=== PATIENT | male | born 1975 | race Caucasian/White ===

== ENCOUNTER → 2019-09-06 10:37 | Outpatient (BNVA) | payer SELFPAY | PROVIDERS: Family Provider Nurse Practitioner Family; PCP Nurse Practitioner Family; Visit Provider Nurse Practitioner Family | DX: R06.02 Shortness of breath (principal) | CPT/HCPCS: 71046 ==

== ENCOUNTER → 2022-01-10 10:03 | Outpatient (BNVA) | payer OTHER, SELFPAY | PROVIDERS: Family Provider Nurse Practitioner Family; PCP Nurse Practitioner Family; Visit Provider Nurse Practitioner Family | DX: I10 Essential (primary) hypertension (principal); E78.5 Hyperlipidemia, unspecified | CPT/HCPCS: 80053; 80061; 83721 ==

== ENCOUNTER → 2022-04-10 14:52 | Outpatient (BNVA) | payer OTHER, SELFPAY | PROVIDERS: Family Provider Nurse Practitioner Family; PCP Nurse Practitioner Family; Visit Provider Nurse Practitioner Family | DX: I10 Essential (primary) hypertension (principal); J32.9 Chronic sinusitis, unspecified | CPT/HCPCS: 80053; 80061; 83721 ==

== ENCOUNTER 2022-04-11 14:54 | Outpatient (CLI) | payer OTHER, SELFPAY ==
--- NOTE | 2022-04-11 15:54 | XRR_ITS ---
PROCEDURE INFORMATION: Exam: XR Sinus Exam date and time: 04/11/2022 3:57 PM Age: 46 years old Clinical indication: Condition or disease; Other: Chronic sinusitis; Additional info: J32.9 - chronic sinusitis, unspecified TECHNIQUE: Imaging protocol: XR of the sinuses and paranasal structures. Views: Minimum of 3 views. COMPARISON: No relevant prior studies available. FINDINGS: Sinuses: Well aerated. No opacification. Bones/joints: No fracture. Soft tissues: Unremarkable. XR/XR sinus min 3V* [id number] IMPRESSION: Unremarkable.
== END 2022-04-11 14:55 | disposition home or self-care (01) ==
LOC: RAD 15:02
PROVIDERS: PCP Nurse Practitioner Family; Visit Provider Nurse Practitioner Family
DX: J32.9 Chronic sinusitis, unspecified (principal)
CPT/HCPCS: 70220

== ENCOUNTER → 2022-08-12 08:12 | Outpatient (BNVA) | payer OTHER, SELFPAY | PROVIDERS: PCP Nurse Practitioner Family; Visit Provider Nurse Practitioner Family | DX: E78.5 Hyperlipidemia, unspecified (principal); I10 Essential (primary) hypertension | CPT/HCPCS: 80053; 80061 ==

== ENCOUNTER → 2022-11-11 14:13 | Outpatient (BNVA) | payer OTHER, SELFPAY | PROVIDERS: PCP Nurse Practitioner Family; Visit Provider Nurse Practitioner Family | DX: I10 Essential (primary) hypertension (principal); E78.5 Hyperlipidemia, unspecified | CPT/HCPCS: 80053; 80061; 83721 ==

== ENCOUNTER → 2023-02-19 11:02 | Outpatient (BNVA) | payer OTHER, SELFPAY | PROVIDERS: PCP Nurse Practitioner Family; Visit Provider Nurse Practitioner Family | DX: I10 Essential (primary) hypertension (principal); E78.5 Hyperlipidemia, unspecified | CPT/HCPCS: 80053; 80061 ==

== ENCOUNTER 2023-04-28 16:15 | Outpatient (CLI) | payer OTHER, SELFPAY ==
--- NOTE | 2023-04-28 16:42 | XRR_ITS ---
PROCEDURE INFORMATION: Exam: XR Chest Exam date and time: 04/28/2023 4:44 PM Age: 47 years old Clinical indication: Cough; Additional info: R05.9 - cough, unspecified TECHNIQUE: Imaging protocol: Radiologic exam of the chest. Views: 2 views. COMPARISON: CR XR chest 2V* [id number] 09/06/2019 10:47 AM FINDINGS: Lungs: Mild perihilar peribronchial thickening. No consolidation. Pleural spaces: Unremarkable. No pleural effusion. No pneumothorax. Heart/Mediastinum: Unremarkable. No cardiomegaly. Bones/joints: Unremarkable. XR/XR chest 2V* [id number] IMPRESSION: Mild perihilar peribronchial thickening suggestive of bronchitis. No confluent consolidation.
== END 2023-04-28 16:16 | disposition home or self-care (01) ==
PROVIDERS: PCP Nurse Practitioner Family; Visit Provider Nurse Practitioner Family
DX: R05.9 Cough, unspecified (principal); R91.8 Other nonspecific abnormal finding of lung field
CPT/HCPCS: 71046

== ENCOUNTER → 2023-07-23 09:15 | Outpatient (BNVA) | payer OTHER, SELFPAY | PROVIDERS: PCP Nurse Practitioner Family; Visit Provider Nurse Practitioner Family | DX: R10.811 Right upper quadrant abdominal tenderness (principal); I10 Essential (primary) hypertension; E78.5 Hyperlipidemia, unspecified; K21.00 Gastro-esophageal reflux disease with esophagitis, without bleeding; R19.8 Other specified symptoms and signs involving the digestive system and abdomen | CPT/HCPCS: 80053; 80061; 83721 ==

== ENCOUNTER 2023-07-31 08:39 | Outpatient (CLI) | payer OTHER, SELFPAY ==
--- NOTE | 2023-07-31 09:15 | USR_ITS ---
PROCEDURE INFORMATION: Exam: US Abdomen; Limited Exam date and time: 07/31/2023 9:18 AM Age: 47 years old Clinical indication: Abdominal pain; Localized; Right upper quadrant (ruq); Additional info: R10.811 - right upper quadrant abdominal tenderness TECHNIQUE: Imaging protocol: Real time ultrasound of the abdomen with image documentation. Limited exam focused on the region of clinical interest. COMPARISON: No relevant prior studies available. FINDINGS: Liver: The liver demonstrates increased echogenicity with decreased visualization of periportal fat with moderate sound attenuation. The liver measures 20.0 cm in the midclavicular plane. No mass. Gallbladder: The gallbladder wall measures 0.3 cm. No gallstones. Biliary ducts: The common bile duct measures 0.4 cm mm. No ductal calculi as visualized. Right kidney: The right kidney measures 12.2 x 6.8 x 6.1 cm. The renal cortex measures 1.2 cm. Unremarkable. A brief color Doppler examination of the right kidney was performed showing normal color shifts. Aorta: Unremarkable upper abdominal aorta measuring 1.3 cm AP dimension. Inferior vena cava: Unremarkable upper abdominal IVC. Portal venous: A brief color and pulsed Doppler examination of the portal vein was performed showing normal hepatopedal flow. 19.8 cm/sec. The main portal vein measures 1.1 cm. US/US liver [id number] IMPRESSION: 1. Fatty infiltration of the liver. 2. Mild hepatomegaly.
== END 2023-07-31 08:40 | disposition home or self-care (01) ==
LOC: RAD 08:39
PROVIDERS: PCP Nurse Practitioner Family; Visit Provider Nurse Practitioner Family
DX: R10.811 Right upper quadrant abdominal tenderness (principal); K76.0 Fatty (change of) liver, not elsewhere classified
CPT/HCPCS: 76705

== ENCOUNTER → 2024-02-06 11:43 | Outpatient (BNVA) | payer OTHER, SELFPAY | PROVIDERS: PCP Nurse Practitioner Family; Visit Provider Nurse Practitioner Family | DX: I10 Essential (primary) hypertension (principal); E78.5 Hyperlipidemia, unspecified | CPT/HCPCS: 80053; 80061 ==

== ENCOUNTER → 2024-05-06 08:39 | Outpatient (BNVA) | payer OTHER, SELFPAY | PROVIDERS: PCP Nurse Practitioner Family; Visit Provider Nurse Practitioner Family | DX: I10 Essential (primary) hypertension (principal); E78.2 Mixed hyperlipidemia | CPT/HCPCS: 80053; 80061; 83721 ==

== ENCOUNTER 2024-05-14 11:36 | Outpatient (CLI) | payer OTHER, SELFPAY ==
--- NOTE | 2024-05-14 | ECG_ITS ---
[facility] Test Date: 2024-05-14 Pat Name: Charles Ware Department: Room: Gender: Male [employer]: : [id number] Requested By: Maida Ramos Order Number: [id number] Pugh MD: Tomas Murillo M.D. Interpretive Statements Lung unchanged pre/post procedure; Intraprocedure shortess of breath; Symptoms resoled by discharge PROCEDURE: At the baseline, the patient's blood pressure was 161/95 with a heart rate of 96. The baseline electrocardiogram showed normal sinus rhythm with normal ST-Ts. 6 minutes. The patient exercised for on a standard Srini protocol. Patient attained a maximum heart rate of 158 beats per minute(91% of the maximum predicted heart rate) with a blood pressure at the peak exercise of 155/97 mm Hg. The EKG at the peak exercise revealed no significant changes. Patient did not have any chest pain or any significant cardiac arrhythmias with the exercise During the recovery phase, there were no new changes. Blood pressure at the end of the recovery phase was 184/106 mm Hg with a heart rate of 102 per minute. CONCLUSION: 1. No significant EKG response to treadmill exercise 2. No exercise-induced chest pain or cardiac arrhythmia 3. Slightly impaired exercise tolerance, attained a maximum of 7.0 METs Electronically Signed On 05-17-2024 07:21:14 [employer] by Tomas Murillo M.[email or web address]
[2024-05-14 11:59] VITALS: BMI 39.0
[2024-05-14 12:16] VITALS: BP 185/105; PULSE 102
== END 2024-05-14 11:37 | disposition home or self-care (01) ==
LOC: CDL 11:36
PROVIDERS: PCP Nurse Practitioner Family; Visit Provider Nurse Practitioner Family
DX: R07.9 Chest pain, unspecified (principal)
CPT/HCPCS: 80053; 80061; 83721; 93017

== ENCOUNTER → 2024-05-28 08:14 | Outpatient (BNVA) | payer OTHER, SELFPAY | PROVIDERS: PCP Nurse Practitioner Family; Visit Provider Nurse Practitioner Family | DX: E78.2 Mixed hyperlipidemia (principal) | CPT/HCPCS: 83036 ==

== ENCOUNTER → 2024-12-13 09:28 | Outpatient (BNVA) | payer BC, SELFPAY | PROVIDERS: PCP Nurse Practitioner Family; Visit Provider Nurse Practitioner Family | DX: R53.83 Other fatigue (principal); I10 Essential (primary) hypertension; E78.5 Hyperlipidemia, unspecified; E78.2 Mixed hyperlipidemia | CPT/HCPCS: 80053; 80061; 83036; 83721; 84443; 85025 ==